=== PATIENT | male | born 1980 | race Caucasian/White ===

== ENCOUNTER 2020-10-13 22:26 | Emergency (ER) | payer OTHER, BC ==
[2020-10-13] MEDS ORDERED: Lactated Ringers 1,000 ML IV ONE (23:24)
[2020-10-13] MEDS ORDERED: Acetaminophen 500 MG Tab PO ONE (23:35)
[2020-10-13 23:42] LABS: CARBON DIOXIDE,CO2 31.2 mmol/L (21.0-32.0)
[2020-10-14] MEDS ORDERED: Dextrose 5%-Lactated Ringers 1,000 ML IV SCH (00:30)
--- NOTE | 2020-10-14 01:54 | EDM.PDOC ---
ED HPI GENERAL MEDICAL PROBLEM - General Chief Complaint: General Stated Complaint: MAYBE HEAT STROKE Time Seen by Provider: 10/13/20 23:24 - History of Present Illness INITIAL COMMENTS - FREE TEXT/NARRATIVE: CHIEF COMPLAINT(S): "Feeling like heatstroke/exhaustion." HISTORY OF PRESENT ILLNESS: Patient is a 40-year-old man without any significant past medical history who comes to the emergency department with "feeling like heatstroke/exhaustion. The patient states that he is feeling very weak today and feels dehydrated. He states that he is working in the sun yesterday and he thinks he may have heatstroke/exhaustion. He states that in addition to feeling dehydrated and weak he is experiencing some diarrhea which is nonbloody and watery like. He states that he is also experiencing a fever at home. Temper ature was elevated at 102. He states that he felt like his fever broke when he got here and is feeling a little bit better. He denies any vomiting, nausea, abdominal pain, chest pain but did have shortness of breath which seems to have resolved when he got here. He denies any cough, runny nose, congestion. He denies any sick contacts. He denied Covid contacts. States that because of the weakness he stayed at home from work today and he has no unclamping in his legs and neck. Denies any neck pain or stiffness. REVIEW OF SYSTEMS: Constitutional: Positive for fever. Denies chills Eyes: Denies eye pain Ears, Nose, Mouth, & Throat: Denies earache, sore throat, runny nose, congestion cardiovascular: Denies chest pain Respiratory: Denies shortness of breath currently Gastrointestinal: Positive for diarrhea. Denies nausea, vomiting, hematochezia, hematemesis, bilious emesis genitourinary: Denies hematuria Skin:Denies a rash MSK: Positive for cramping of the bilateral legs. Neurological: Positive for weakness. Denies headache, blurred vision, numbness, tingling, trouble walking, trouble speaking, trouble swallowing Psychiatric: Denies depression PAST MEDICAL HISTORY: As per history of present illness and as reviewed below otherwise noncontributory. SURGICAL HISTORY: As per history of present illness and as reviewed below otherwise noncontributory. SOCIAL HISTORY: As per history of present illness and as reviewed below otherwise noncontributory. FAMILY HISTORY: As per history of present illness and as reviewed below otherwise noncontributory. EXAMINATION OF ORGAN SYSTEMS/BODY AREAS: Constitutional: Blood pressure was 131/90, heart rate 100, respiratory rate 17 with an oxygen saturation of 96% on room air. Temperature 38.3 temporally General: Young man who does not appear to be in acute distress Psychiatric: Appropriate mood and affect. Eyes: No scleral icterus or conjunctival erythema pupils equal round reactive to light. No nystagmus noted ENMT: Dry mucous membranes. No pharyngeal erythema. No tonsillar exudates or swelling Cardiovascular: Regular, rate, and rhythm. No gallops, murmurs, or rubs. Bilateral upper extremity pulses symmetric and intact. No peripheral edema. No JVD. Respiratory: Lungs clear to auscultation bilaterally. No wheezes, rales, or rhonchi. Gastrointestinal: Soft, non-tender, non-distended. Normoactive bowel sounds no rebound or guarding Genitourinary: No suprapubic tenderness Musculoskeletal: Normal range of motion. Skin: No lesions or abrasions. Neurological: Alert, GCS 15 strength and sensation grossly intact in upper and lower extremities bilaterally. MEDICAL DECISION MAKING AND COURSE IN THE ED WITH INTERPRETATION/REVIEW OF DIAGNOSTIC STUDIES: This is a 40-year-old man without any significant past medical history who presents to the emergency department with fever, weakness, and diarrhea with concern of heat exhaustion versus stroke. At this time the patient is neurovascularly intact. He does not have any overt abnormal signs on examination. Given the patient's fever and diarrhea I do suspect a viral etiology however we will obtain screening labs including CBC, CMP, CPK given his concern for heatstroke we will also obtain a urinalysis and a Covid swab. We will provide the patient with 1 L of D5 lactated Ringer's bolus for rehydration and Tylenol 1 g for fever. We will reevaluate after laboratory analysis and treatment. CBC reveals elevated white blood cell count of 11.83 otherwise normal indices without any evidence of left shift. Increased hemoglobin at 18.8 hematocrit of 52.2. Otherwise unremarkable. CMP reveals hyponatremia at 134, hypochloremia at 96, with a BUN of 9 and creatinine 1.4, hyperglycemia at 132. There is a mild transaminitis with an AST of 71, ALT of 94 and a total bilirubin of 1.8. Otherwise unremarkable. Urinalysis was a clean catch and was negative for leukocyte esterase, negative for nitrites, and trace for blood. 0-2 RBCs Interpretation: Negative. On reevaluation the patient continued to report some dehydration. Therefore I provided him with an additional liter of lactated Ringer's bolus. At this time I did discuss results with the patient. I discussed that he does have transaminitis. 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 He currently denies any IV drug use, history of other hepatitis like hepatitis B C or A. Patient does not have rhabdomyolysis therefore this is likely a true transaminitis. He does have an acute kidney injury with a BUN of 1.4 I did discuss p.o. hydration with the patient. At this time I do suspect a viral etiology as the patient continues to not have any pain on examination and his fever improved with Tylenol and he continues to appear well. After repeat fluids I did discuss strict return precautions with the patient. He is to follow-up With his primary care physician for further work-up given the transaminitis and elevated bilirubin. This could just likely be acute phase reactants however given the elevation I would like him to follow-up. He is to return for any new or worsening symptoms. He was amenable discharge at this time and had no further questions. .DISPOSITION: The patient was discharged home in stable condition. The patient will follow up with his primary care physician in 1 to 3 days CONDITION: Fair PROCEDURES: None FINAL IMPRESSION(S)/DIAGNOSES: 1. Acute fever likely secondary to viral etiology 2. Acute diarrhea likely secondary to viral etiology 3. Acute hyperbilirubinemia and transaminitis, unknown etiology 4. Acute kidney injury likely secondary to dehydration Montez Peterson M.D - Related Data Allergies Allergy/AdvReac Type Severity Reaction Status Date / Time No Known Allergies Allergy Verified 10/13/20 22:45 Home Meds: Home Meds Cyclobenzaprine [Flexeril] 10 mg PO BEDTIME #10 tab 10/19/13 [Rx] Past Medical History HEENT History: Reports: None Cardiovascular History: Reports: None Respiratory History: Reports: None Genitourinary History: Reports: None Musculoskeletal History: Reports: None Neurological History: Reports: None Psychiatric History: Reports: None Endocrine/Metabolic History: Reports: None Hematologic History: Reports: None Immunologic History: Reports: None Oncologic (Cancer) History: Reports: None Dermatologic History: Reports: None - Infectious Disease History Infectious Disease History: Reports: Chicken Pox, Shingles - Past Surgical History Head Surgeries/Procedures: Reports: None Cardiovascular Surgical History: Reports: None GI Surgical History: Reports: Appendectomy Oncologic Surgical History: Reports: None Social & Family History - Family History Family Medical History: No Pertinent Family History - Tobacco Use Tobacco Use Status *Q: Never Tobacco User - Caffeine Use Caffeine Use: Reports: Coffee, Energy Drinks, Soda - Recreational Drug Use Recreational Drug Use: No ED ROS GENERAL - Review of Systems Review Of Systems: See Below ED EXAM, GENERAL - Physical Exam Exam: See Below Course - Vital Signs Last Recorded V/S: Last Vital Signs Temp 37.3 C 10/14/20 00:50 Pulse 83 10/14/20 02:07 Resp 16 10/14/20 02:07 BP 127/84 10/14/20 02:07 Pulse Ox 97 10/14/20 02:07 - Orders/Labs/Meds Labs: Laboratory Tests 10/13/20 10/13/20 10/13/20 Range/Units 22:58 23:00 23:00 WBC 11.83 H (4.0-11.0) K/uL RBC 6.13 H (4.50-5.90) M/uL Hgb 18.8 H (13.0-17.0) g/dL Hct 52.2 H (38.0-50.0) % MCV 85.2 (80.0-98.0) fL MCH 30.7 (27.0-32.0) pg MCHC 36.0 (31.0-37.0) g/dL RDW Std Deviation 40.3 (28.0-62.0) fl RDW Coeff of Baron 13 (11.0-15.0) % Plt Count 174 (150-400) K/uL MPV 10.90 (7.40-12.00) fL Neut % (Auto) 76.9 (48.0-80.0) % Lymph % (Auto) 10.8 L (16.0-40.0) % [place] % (Auto) 12.0 (0.0-15.0) % Eos % (Auto) 0.1 (0.0-7.0) % Baso % (Auto) 0.2 (0.0-1.5) % Neut # (Auto) 9.1 H (1.4-5.7) K/uL Lymph # (Auto) 1.3 (0.6-2.4) K/uL [place]linger # (Auto) 1.4 H (0.0-0.8) K/uL Eos # (Auto) 0.0 (0.0-0.7) K/uL Baso # (Auto) 0.0 (0.0-0.1) K/uL Nucleated RBC % 0.0 /100WBC Nucleated RBCs # 0 K/uL Sodium 134 L (136-148) mmol/L Potassium 4.0 (3.5-5.1) mmol/L Chloride 96 L (98-107) mmol/L Carbon Dioxide 31.2 (21.0-32.0) mmol/L BUN 9 (7.0-18.0) mg/dL Creatinine 1.4 H (0.8-1.3) mg/dL Est Cr Clr Drug Dosing 82.99 mL/min Estimated GFR (MDRD) 55.8 ml/min Glucose 132 H (74-106) mg/dL Calcium 9.3 (8.5-10.1) mg/dL Total Bilirubin 1.8 H (0.2-1.0) mg/dL AST 71 H (15-37) IU/L ALT 94 H (14-63) IU/L Alkaline Phosphatase 82 (46-116) U/L Creatine Kinase 65 (26-308) U/L Total Protein 8.0 (6.4-8.2) g/dL Albumin 3.7 (3.4-5.0) g/dL Globulin 4.3 H (2.6-4.0) g/dL Albumin/Globulin Ratio 0.9 (0.9-1.6) Urine Color Urine Appearance Urine pH (5.0-8.0) Ur Specific [place] (1.001-1.035) Urine Protein (NEGATIVE) mg/dL Urine Glucose (UA) (NEGATIVE) mg/dL Urine Ketones (NEGATIVE) mg/dL Urine Occult Blood (NEGATIVE) Urine Nitrite (NEGATIVE) Urine Bilirubin (NEGATIVE) Urine Urobilinogen (<2.0) EU/dL Ur Leukocyte Esterase (NEGATIVE) Urine RBC (0-2/HPF) Urine WBC (0-5/HPF) Ur Epithelial Cells (NONE-FEW) Urine Bacteria (NEGATIVE) SARS-CoV-2 RNA (CYNTHIA) NEGATIVE (NEGATIVE) 10/14/20 Range/Units 00:46 WBC (4.0-11.0) K/uL RBC (4.50-5.90) M/uL Hgb (13.0-17.0) g/dL Hct (38.0-50.0) % MCV (80.0-98.0) fL MCH (27.0-32.0) pg MCHC (31.0-37.0) g/dL RDW Std Deviation (28.0-62.0) fl RDW Coeff of Baron (11.0-15.0) % Plt Count (150-400) K/uL MPV (7.40-12.00) fL Neut % (Auto) (48.0-80.0) % Lymph % (Auto) (16.0-40.0) % [place]linger % (Auto) (0.0-15.0) % Eos % (Auto) (0.0-7.0) % Baso % (Auto) (0.0-1.5) % Neut # (Auto) (1.4-5.7) K/uL Lymph # (Auto) (0.6-2.4) K/uL [place]linger # (Auto) (0.0-0.8) K/uL Eos # (Auto) (0.0-0.7) K/uL Baso # (Auto) (0.0-0.1) K/uL Nucleated RBC % /100WBC Nucleated RBCs # K/uL Sodium (136-148) mmol/L Potassium (3.5-5.1) mmol/L Chloride (98-107) mmol/L Carbon Dioxide (21.0-32.0) mmol/L BUN (7.0-18.0) mg/dL Creatinine (0.8-1.3) mg/dL Est Cr Clr Drug Dosing mL/min Estimated GFR (MDRD) ml/min Glucose (74-106) mg/dL Calcium (8.5-10.1) mg/dL Total Bilirubin (0.2-1.0) mg/dL AST (15-37) IU/L ALT (14-63) IU/L Alkaline Phosphatase (46-116) U/L Creatine Kinase (26-308) U/L Total Protein (6.4-8.2) g/dL Albumin (3.4-5.0) g/dL Globulin (2.6-4.0) g/dL Albumin/Globulin Ratio (0.9-1.6) Urine Color YELLOW Urine Appearance CLEAR Urine pH 6.0 (5.0-8.0) Ur Specific [place] 1.015 (1.001-1.035) Urine Protein 100 H (NEGATIVE) mg/dL Urine Glucose (UA) NEGATIVE (NEGATIVE) mg/dL Urine Ketones NEGATIVE (NEGATIVE) mg/dL Urine Occult Blood TRACE-INTACT H (NEGATIVE) Urine Nitrite NEGATIVE (NEGATIVE) Urine Bilirubin NEGATIVE (NEGATIVE) Urine Urobilinogen 0.2 (<2.0) EU/dL Ur Leukocyte Esterase NEGATIVE (NEGATIVE) Urine RBC 0-2 (0-2/HPF) Urine WBC 0-1 (0-5/HPF) Ur Epithelial Cells RARE (NONE-FEW) Urine Bacteria RARE (NEGATIVE) SARS-CoV-2 RNA (CYNTHIA) (NEGATIVE) Meds: Medications Discontinued Medications Generic Name Dose Route Start Last Admin Trade Name Freq PRN Reason Stop Dose Admin Acetaminophen 1,000 mg 10/13/20 23:35 10/13/20 23:40 Acetaminophen 500 Mg Tab PO 10/13/20 23:36 1,000 mg ONETIME ONE Administration Lactated Ringer's 1,000 mls @ 999 mls/hr 10/13/20 23:24 10/13/20 23:30 Ringers, Lactated IV 10/14/20 00:24 999 mls/hr .BOLUS ONE Administration Dextrose/Lactated Ringer's 1,000 mls @ 999 mls/hr 10/14/20 00:30 10/14/20 00:46 Dextrose 5%-Lactated Ringers IV 999 mls/hr ASDIRECTED DAMIAN Administration Departure - Departure Time of Disposition: 01:52 Disposition: Home, Self-Care 01 Condition: Fair Clinical Impression: Diarrhea, Transaminitis, Hyperbilirubinemia, Acute kidney injury - Discharge Information *PRESCRIPTION DRUG MONITORING PROGRAM REVIEWED*: No *COPY OF PRESCRIPTION DRUG MONITORING REPORT IN PATIENT STAN: No Instructions: Food Choices to Help Relieve Diarrhea, Adult, Dehydration, Adult, [id number], Diarrhea, Adult, Hisj-[id number] Referrals: PCP,None [Primary Care Provider] - Forms: ED Department Discharge Additional Instructions: You were evaluated today on an emergent basis. At this time we did do screening labs which did reveal some evidence of dehydration with a decrease in your kidney function and some inflammation of your liver. We did provide you with Tylenol and 2 L of fluids and you did report improvement. Your temperature decreased and your heart rate improved. At this time I do recommend that she continue with p.o. hydration including Pedialyte, Gatorade, and water. Typically diarrhea improves within the next couple of days. If you are having greater than 5-6 large-volume diarrhea episodes a day, blood in your stool, continued fever, abdominal pain I would like you to return to the emergency department. Otherwise please follow-up with primary care physician for further work-up given the liver inflammation seen on labs today. [facility] [address] [place] [address] [place] [id number] The patient is informed of any results of their evaluation and diagnostic workup and all questions are answered. They are given discharge instructions and return precautions. The patient is stable for discharge. The patient states they understand and agree with the plan and that they will return if their symptoms get worse or if they have any new concerns. The following information is given to patients seen in the emergency department who are being discharged to home. This information is to outline your options for follow-up care. We provide all patients seen in our emergency department with a follow-up referral. The need for follow-up, as well as the timing and circumstances, are variable depending upon the specifics of your emergency department visit. If you don't have a primary care physician on staff, we will provide you with a referral. We always advise you to contact your personal physician following an emergency department visit to inform them of the circumstance of the visit and for follow-up with them and/or the need for any referrals to a consulting specialist. The emergency department will also refer you to a specialist when appropriate. This referral assures that you have the opportunity for follow-up care with a specialist. All of these measure are taken in an effort to provide you with optimal care, which includes your follow-up. Under all circumstances we always encourage you to contact your private physician who remains a resource for coordinating your care. When calling for follow-up care, please make the office aware that this follow-up is from your recent emergency room visit. If for any reason you are refused follow-up, please contact the [facility] Emergency Department at and asked to speak to the emergency department charge nurse. Sepsis Event Note (ED) - Evaluation Sepsis Screening Result: No Definite Risk
== END 2020-10-14 02:11 | disposition home or self-care (01) ==
LOC: MW.ED 22:26
DX: N17.9 Acute kidney failure, unspecified (principal); R19.7 Diarrhea, unspecified; R50.9 Fever, unspecified; E80.6 Other disorders of bilirubin metabolism; R74.01 Elevation of levels of liver transaminase levels; Z20.822 Contact with and (suspected) exposure to COVID-19
CPT/HCPCS: 36415; 80053; 81001; 82550; 85025; 87635; 99284; A9270; J7120; J7121; U0002

== ENCOUNTER 2024-08-27 07:15 | Emergency (ER) | payer BC ==
[2024-08-27 08:18] LABS: BASOPHILS ABSOLUTE AUTO 0.02 K/uL (0.00-0.20); BASOPHILS PERCENT AUTO 0.2 % (0.0-1.0); EOSINOPHILS ABSOLUTE AUTO 0.06 K/uL (0.00-0.45); EOSINOPHILS PERCENT AUTO 0.6 % (0.0-6.0); HEMATOCRIT 47.7 % (42.0-52.0); HEMOGLOBIN 16.9 g/dL (14.0-18.0); IMMATURE GRAN ABSOLUTE AUTO 0.02 K/uL (0.00-0.05); IMMATURE GRAN PERCENT AUTO 0.2 % (0.0-0.4); LYMPHOCYTES ABSOLUTE AUTO 1.79 K/uL (1.00-4.80); LYMPHOCYTES PERCENT AUTO 19.4 % (24.0-44.0); MEAN CORPUSCULAR HEMOGLOBIN 30.4 pg (28.0-32.0); MEAN CORPUSCULAR HGB CONC 35.4 g/dL (32.0-36.0); MEAN CORPUSCULAR VOLUME 85.8 fL (83.0-99.0); MEAN PLATELET VOLUME 10.1 fL (9.4-12.4); MONOCYTES ABSOLUTE AUTO 0.79 K/uL (0.00-0.80); MONOCYTES PERCENT AUTO 8.5 % (0.0-8.0); NEUTROPHILS ABSOLUTE AUTO 6.56 K/uL (1.80-7.70); NEUTROPHILS PERCENT AUTO 71.1 % (41.0-71.0); PLATELET COUNT,PLT 238 K/uL (150-400); RED BLOOD CELL COUNT 5.56 M/uL (4.52-5.90); WHITE BLOOD CELL COUNT,WBC 9.24 K/uL (3.9-11.3)
[2024-08-27 08:38] LABS: APPEARANCE,URINE CLEAR; BILIRUBIN,URINE NEGATIVE (NEGATIVE); COLOR,URINE YELLOW; GLUCOSE,URINE NEGATIVE (NEGATIVE); KETONES,URINE TRACE mg/dL (NEGATIVE); LEUKOCYTE ESTERASE,URINE NEGATIVE (NEGATIVE); NITRITE,URINE NEGATIVE (NEGATIVE); OCCULT BLOOD,URINE NEGATIVE (NEGATIVE); PROTEIN,URINE 100 mg/dL (NEGATIVE)
[2024-08-27 08:46] LABS: AMPHETAMINES SCREEN, URINE NEGATIVE (CUTOFF=500); BARBITURATE SCREEN,URINE NEGATIVE (CUTOFF=200); BENZODIAZEPINES SCREEN,URINE NEGATIVE (CUTOFF=150); BUPRENORPHINE SCREEN,URINE NEGATIVE (CUTOFF=10); METHADONE SCREEN, URINE NEGATIVE (CUTOFF=200); METHAMPHETAMINES SCREEN, URINE NEGATIVE (CUTOFF=500); OXYCODONE SCREEN,URINE NEGATIVE (CUT0FF=100); PCP SCREEN,URINE NEGATIVE (CUTOFF=25); THC SCREEN,URINE 20 NG/ML NEGATIVE (CUTOFF=50)
[2024-08-27 08:56] LABS: A/G RATIO 1.3 (0.9-1.6); ACETAMINOPHEN <2.0 ug/mL; ALANINE AMINOTRANSFERASE,ALT 28 IU/L (14-63); ALBUMIN 4.1 g/dL (3.4-5.0); ALKALINE PHOSPHATASE 62 U/L (46-116); ASPARTATE AMNIOTRANSFERASE,AST 13 IU/L (15-37); BLOOD UREA NITROGEN,BUN 18 mg/dL (7.0-18.0); CALCIUM 9.2 mg/dL (8.5-10.1); CARBON DIOXIDE,CO2 32.1 mmol/L (21.0-32.0); CHLORIDE,CL 100 mmol/L (98-107); CREATININE 1.3 mg/dL (0.8-1.3); EST CRCL DRUG DOSING (CG) 86.67 mL/min; ETHANOL BLOOD MEDICAL <3 mg/dL; GLUCOSE RANDOM 128 mg/dL (74-106); MAGNESIUM 2.3 mg/dL (1.8-2.4); POTASSIUM,K 4.2 mmol/L (3.5-5.1); PROTEIN TOTAL,TP 7.3 g/dL (6.4-8.2); SALICYLATE <0.2 mg/dL (0.0-20.0); SODIUM,NA 138 mmol/L (136-148); TSH ULTRASENSITIVE 1.02 uIU/mL (0.36-3.74)
[2024-08-27 09:02] LABS: ESTIMATED GFR 69 mL/min (>60)
[2024-08-27 09:11] LABS: BACTERIA,URINE FEW (NEGATIVE); EPITHELIAL CELLS,URINE RARE (NONE-FEW); RBC,URINE 0-2 (0-2/HPF); WBC,URINE 0-2 (0-5/HPF)
[2024-08-27] MEDS: OLANZapine 5 MG Tab.DIS PO ONE (09:31)
[2024-08-27] MEDS ORDERED: droPERidol 2.5 MG/ML SDV IM PRN (10:50)
== END 2024-08-27 13:37 ==
LOC: MW.ED 07:15
DX: G47.00 Insomnia, unspecified (principal); F22 Delusional disorders; F41.9 Anxiety disorder, unspecified; R03.0 Elevated blood-pressure reading, without diagnosis of hypertension; Z90.49 Acquired absence of other specified parts of digestive tract; Z79.899 Other long term (current) drug therapy
CPT/HCPCS: 36415; 80053; 80143; 80179; 80305; 80307; 81001; 83735; 84443; 85025; 93005; 99285; A9270; 93010; 99284